=== PATIENT | male | born 1950 | race Caucasian/White ===

== ENCOUNTER 2020-02-08 11:00 | Outpatient (RCR) | payer MEDICARE, MEDICAID, SELFPAY ==
--- NOTE | 2020-01-13 13:33 | HMH.PTOPWND ---
Rehab Outpt Wound Evaluation Rehab OP Wound Evaluation Start: 01/13/20 13:01 Freq: Status: Active Protocol: Document 01/13/20 13:21 SAMIA (Rec: 01/13/20 13:32 PHORNE [id number]) Electronically Signed By Krunal Baptiste, PT 01/13/20 13:21 Subjective/History History History Pt is 69 yowm who presents with significant B LE edema, R >L, for several years. Some pitting edema noted, but mostly fibrotic woody edema. He reports pain in B lower legs comes and goes, but no significant palpation tenderness. He has multiple co -morbidities which likely increase his edema with PMH of HTN, HL, COPD, CAD, PVD, CKD, CHF, DM-II, L foot TM amputation He uses w/c for primary mobility. Subjective Subjective Pain is 5/10 in B lower legs. Lymphedema Eval Classification of Lymphedema Secondary Lymphedema Yes: CHF, CKD, CVI, COPD Stemmer's sign Stemmer's Sign yes Stage of Lymphedema Lymphedema stages Stage III (Non-pitting, fibrosis and sclerosis, skin changes) Skin Changes Dry Skin Yes Taut, Shiny Skin Yes Papillomatosis Yes Brittle Uneven Nails Yes Discoloration of Skin Yes Other Changes Yes: dermatosclerosis Pain Scale Pain Scale (0-10) 5 Affected Extremities Areas Affected by Lymphedema/Edema Right Lower Extremity,Left Lower Extremity Manual Lymphatic Drainage Treatment Area MLD Treatment Area Right Lower Extremity,Left Lower Extremity Wound Problems/Impairments Impairments Problems/Impairmments Impaired Range of Motion, Impaired Strength,Impaired Endurance,Impaired Transfers, Impaired Gait Pattern,Impaired Walking,Impaired Standing, Increased Edema,Lymphedema Present,Subjective C/O Pain, Impaired Self Care/Self Management Prognosis Rehab Potential Fair Comment Multiple co-morbidities with likely make treatment difficult. Clinical Impression Consistent
== END 2020-02-08 11:05 | disposition home or self-care (01) ==
LOC: PT 11:00
PROVIDERS: Visit Provider Internal Medicine Adolescent Medicine
DX: I89.0 Lymphedema, not elsewhere classified (principal)
CPT/HCPCS: 97140; 97163

== ENCOUNTER 2020-02-19 14:07 | Inpatient (IN) | payer MEDICARE, MEDICAID, SELFPAY ==
[2020-02-19] VITALS (10 sets, daily range): BP systolic 107–130; BP diastolic 49–92; PULSE 60–90; RESP 18–24; TEMP 36.8–36.9; O2SAT 90–98; BMI 41.8; BMI 394623.8
--- NOTE | 2020-02-19 14:16 | ECG_ITS ---
APPROVED REPORT Exam: Resting ECG HR:65 bpm ECG Measurements Heart Rate 65 AXES [place] 182 P 92 QRSd 92 QRS -12 QT 402 T 260 QTc 418 <Conclusion> Sinus rhythm with occasional premature ventricular complexes Motion Artifact T wave abnormality, consider inferior ischemia T wave abnormality, consider anterior ischemia Abnormal ECG Electronically signed by : Jaydon Bess, 02/20/2020 09:06:11
--- NOTE | 2020-02-19 14:55 | XR_ITS ---
PROCEDURE: XR CHEST PORTABLE CLINICAL HISTORY: soa Shortness of air COMPARISON: CXR2 CHEST-AP VIEW ONLY from 12/06/2016 CXR1 CHEST-PORTABLE from 12/27/2016 CXR-PICC CHEST PORTABLE-PICC PLACEMENT from 12/31/2016 FINDINGS: There is cardiomegaly with elevated right hemidiaphragm. The diaphragmatic elevation has increased compared to the previous exam. The left lung remains clear. No acute bony findings. IMPRESSION: Cardiomegaly with elevated right hemidiaphragm with increased density in the right lung base which could be related to the diaphragmatic elevation. Other processes such as right lower lobe collapse and sub pulmonic effusion could cause a similar appearance. Dictated by: Robert Edmonds MD 02/19/2020 15:49 Electronically signed by Robert Edmonds MD in [place] 02/19/2020 15:49
[2020-02-19 15:04] LABS: Basophils % 0.1 % (0.1-2.0); Eosinophils % 0.3 % (0.1-12.0); Hematocrit 31.2 % (42.0-52.0); Hemoglobin 9.9 g/dL (14.1-18.0); Lymphocytes # 0.7 K/mm3 (0.7-4.5); Lymphocytes % 5.3 % (10-50); Mean Corpuscular HGB Conc 31.8 g/dL (31.8-35.4); Mean Corpuscular Hemoglobin 28.3 pg (27.0-31.2); Mean Corpuscular Volume 88.9 fl (80-94); Mean Platelet Volume 10.6 fl (7.4-10.4); Monocytes # 1.2 K/mm3 (0.1-1.0); Neutrophils # 11.7 K/mm3 (1.8-7.8); Neutrophils % 85.3 % (37.0-80.0); Platelet Count 291 K/mm3 (142-424); Red Blood Count 3.51 M/mm3 (4.60-6.20); Red Cell Distribution Width 16.7 % (11.5-17.5); White Blood Count 13.7 K/mm3 (4.8-10.8)
[2020-02-19 15:06] LABS: Chloride 90 mmol/L (98-107); Potassium 3.2 mmoL/L (3.5-5.1); Sodium 138 mmol/L (136-145)
[2020-02-19 15:07] LABS: MANUAL DIFFERENTIAL MANUAL DIFFERENTIAL (MANUAL DIFF)
[2020-02-19 15:08] LABS: Alanine Aminotransferase 21 U/L (12-78); Aspartate Amino Transferase 38 U/L (17-59); Blood Urea Nitrogen 47 mg/dl (9-20); Creatinine Clearance Estimated 29 mL/min (50-200); Estimated Glomerular Filt Rate 28 ml/min (>60); GFR (African American) 34 ML/MIN (>60)
[2020-02-19 15:09] LABS: Alkaline Phosphatase 93 U/L (38-126); Bilirubin,Total 0.5 mg/dl (0.2-1.3); Calcium 8.6 mg/dl (8.4-10.2); Globulin 3.1 g/dL (1.3-3.2); Glucose 157 mg/dl (74-100); Total Protein,Serum 6.1 g/dl (6.3-8.2)
[2020-02-19 15:14] LABS: Lactic Acid 0.9 mmol/L (0.7-2.1)
[2020-02-19 15:19] LABS: Anion Gap 8.2 mEq/L (5-15); Carbon Dioxide 43 mmol/L (22.0-30.0)
[2020-02-19 15:21] LABS: Troponin I 0.04 ng/ml (0.00-0.034)
[2020-02-19 15:25] LABS: Anisocytosis 1+; Hypochromasia 1+; Lymphocytes % 8 % (10-50); Monocytes % 8 % (2-9); Neutrophils % 81 % (42-76); Platelet Estimate Normal; Poikilocytosis 1+; Stomatocytes 1+; Total Cells Counted 100
[2020-02-19 15:43] LABS: Activated Partial Thrombo Time 27.6 seconds (23.6-34.0); INR 1.18 (0.9-1.1)
[2020-02-19 16:07] LABS: ABG Base Excess 15.9 mmol/L (-2.4-2.3); ABG HCO3 40.6 mmhg (22.0-26.0); ABG Oxygen Saturation 89 % (90-100); ABG PH 7.41 mmol/L (7.35-7.45); ABG PO2 60.2 mmhg (80-100); ABG TCO2 42.6 mmhg (23-27)
[2020-02-19 16:09] LABS: Allen's Test ACCEPTABLE; Oxygen 3LPM %; Source L RADIAL
[2020-02-19 16:11] LABS: ABG PCO2 66.1 mmhg (35.0-45.0)
--- NOTE | 2020-02-19 16:14 | HMH.EDGENADL ---
ED Disposition Clinical Impression: Acute and chronic respiratory failure with hypoxia, Recurrent right pleural effusion, Right lower lobe pneumonia, UTI (urinary tract infection), [id number] kidney injury Disposition: Admitted As Inpatient Condition on Discharge: Serious Referrals: Edouard De Luna MD [Primary Care Provider] - Time of Disposition: 17:25 - Critical Care Critical Care Time: No Attestation: On 02/19/20, the high probability of a clinically significant, sudden or life threatening deterioration of the following system(s) required my full and direct attention, intervention and personal management. The time I documented below is in addition to time spent performing reported procedures but includes the following listed in this critical care notation. Medical Decision Making - Elmer Inquiry Pt receiving controlled substance: No Vital Signs: 02/19/20 15:03 02/19/20 15:10 02/19/20 15:55 Temperature 98.2 F Temperature Source Oral Pulse Rate [Right Brachial] 90 76 71 Respiratory Rate 18 20 22 Blood Pressure [Right Arm] 118/60 130/92 H 114/52 L Blood Pressure Mean [Right Arm] 79 104 72 Blood Pressure Source [Right Arm] Automatic Cuff Automatic Cuff Automatic Cuff Blood Pressure Position [Right Arm] Sitting Supine Supine 02 Sat by Pulse Oximetry 94 L 90 L 91 L Oxygen Delivery Method Nasal Cannula Nasal Cannula Nasal Cannula 02/19/20 16:30 02/19/20 16:59 Temperature Temperature Source Pulse Rate [Right Brachial] 74 73 Respiratory Rate 24 24 Blood Pressure [Right Arm] 107/49 L 107/49 L Blood Pressure Mean [Right Arm] 68 68 Blood Pressure Source [Right Arm] Automatic Cuff Automatic Cuff Blood Pressure Position [Right Arm] Supine Supine 02 Sat by Pulse Oximetry 98 95 Oxygen Delivery Method Room Air Nasal Cannula - Lab Data Lab Results 02/19/20 14:40: Troponin I 0.04 H 02/19/20 14:40: Lactate 0.9 02/19/20 14:40: WBC 13.7 H, RBC 3.51 L, Hgb 9.9 L, Hct 31.2 L, MCV 88.9, MCH 28.3, MCHC 31.8, RDW 16.7, Plt Count 291, MPV 10.6 H, Neut % (Auto) 85.3 H, Lymph % (Auto) 5.3 L, [place] % (Auto) 9.0, Eos % (Auto) 0.3, Baso % (Auto) 0.1, Neut # (Auto) 11.7 H, Lymph # (Auto) 0.7, [place] # (Auto) 1.2 H, Eos # (Auto) 0.0, Baso # (Auto) 0.0, Total Counted 100, Neutrophils % (Manual) 81 H, Band Neutrophils % 3.0, Lymphocytes % (Manual) 8 L, Monocytes % (Manual) 8, Platelet Estimate Normal, Hypochromasia 1+, Poikilocytosis 1+, Anisocytosis 1+, Stomatocytes 1+ 02/19/20 14:40: Sodium 138, Potassium 3.2 L, Chloride 90 L, Carbon Dioxide 43 H*, Anion Gap 8.2, BUN 47 H, Creatinine 2.30 H, Estimated Creat Clear 29, Estimated GFR 28 L, Est GFR ( Amer) 34 L, Glucose 157 H, Calcium 8.6, Total Bilirubin 0.5, AST 38, ALT 21, Alkaline Phosphatase 93, Total Protein 6.1 L, Albumin 3.0 L, Globulin 3.1, Albumin/Globulin Ratio 1.0 L 02/19/20 14:40: PT 12.0 H, INR 1.18 H, APTT 27.6 02/19/20 15:03: Specimen Source L radial, O2 % 3lpm, ABG pH 7.41, ABG pCO2 66.1 H, ABG pO2 60.2 L, ABG HCO3 40.6 H, ABG Total CO2 42.6 H, ABG O2 Saturation 89 L, ABG Base Excess 15.9 H, Robert Test Acceptable Result diagrams: 02/19/20 14:40 02/19/20 14:40 Orders (Tests/Meds): ED MEDICATIONS Generic Name Dose Route Start Last Admin Trade Name Freq PRN Reason Stop Dose Admin Cefepime HCl 2 gm/ Sodium 100 mls @ 200 mls/hr 02/19/20 16:00 02/19/20 17:14 Chloride IV 03/04/20 15:59 200 mls/hr Q12H SACHIN Administration Protocol Vancomycin HCl 2,000 mg/ 250 mls @ 125 mls/hr 02/19/20 17:00 Sodium Chloride IV 03/04/20 16:59 Q24H SACHIN Protocol Lactated Ringer's 500 mls @ 999 mls/hr 02/19/20 17:30 Lactated Ringer's 1000 Ml Bag IV 02/19/20 18:00 .Q31M SACHIN Lactated Ringer's 1,000 mls @ 100 mls/hr 02/19/20 17:30 Lactated Ringer's 1000 Ml Bag IV 03/20/20 17:29 .Q10H SACHIN ORDERS Category Date Time Status Rapid Influenza A&B Antigens Stat Lab 02/19/20 15:03 Ordered Troponin I Q3H Lab 02/19/20 18:0
--- NOTE | 2020-02-19 16:37 | HMH.PHACONS ---
- Pharmacy Consult Date: 02/19/20 Time: 16:37 Referring provider: DR. CARROLL Reason for Consult:: VANCOMYCIN DOSING Allergies and ADEs:: Allergies Allergy/AdvReac Type Severity Reaction Status Date / Time No Known Allergies Allergy Unverified 07/30/17 14:06 Home Medications:: Home Medications Medication Instructions Recorded Confirmed Type Unobtainable 02/19/20 02/19/20 History Height: 1.83 m Weight: 139.706 kg Laboratory Results:: Laboratory Results - last 24 hr 02/19/20 14:40: Troponin I 0.04 H 02/19/20 14:40: Lactate 0.9 02/19/20 14:40: WBC 13.7 H, RBC 3.51 L, Hgb 9.9 L, Hct 31.2 L, MCV 88.9, MCH 28.3, MCHC 31.8, RDW 16.7, Plt Count 291, MPV 10.6 H, Neut % (Auto) 85.3 H, Lymph % (Auto) 5.3 L, [place] % (Auto) 9.0, Eos % (Auto) 0.3, Baso % (Auto) 0.1, Neut # (Auto) 11.7 H, Lymph # (Auto) 0.7, [place] # (Auto) 1.2 H, Eos # (Auto) 0.0, Baso # (Auto) 0.0, Total Counted 100, Neutrophils % (Manual) 81 H, Band Neutrophils % 3.0, Lymphocytes % (Manual) 8 L, Monocytes % (Manual) 8, Platelet Estimate Normal, Hypochromasia 1+, Poikilocytosis 1+, Anisocytosis 1+, Stomatocytes 1+ 02/19/20 14:40: Sodium 138, Potassium 3.2 L, Chloride 90 L, Carbon Dioxide 43 H*, Anion Gap 8.2, BUN 47 H, Creatinine 2.30 H, Estimated Creat Clear 29, Estimated GFR 28 L, Est GFR ( Amer) 34 L, Glucose 157 H, Calcium 8.6, Total Bilirubin 0.5, AST 38, ALT 21, Alkaline Phosphatase 93, Total Protein 6.1 L, Albumin 3.0 L, Globulin 3.1, Albumin/Globulin Ratio 1.0 L 02/19/20 14:40: PT 12.0 H, INR 1.18 H, APTT 27.6 07/10/20 15:03: Specimen Source L radial, O2 % 3lpm, ABG pH 7.41, ABG pCO2 66.1 H, ABG pO2 60.2 L, ABG HCO3 40.6 H, ABG Total CO2 42.6 H, ABG O2 Saturation 89 L, ABG Base Excess 15.9 H, Robert Test Acceptable Assessment and Plan - Assessment and plan all Dx Assessment and Plan for all problems:: Assessment: IBW (kg): 77.60 Dosing wt(kg): 134.9 Estimated Creatinine clearance (ml/min): 32.3 CRCL method: Cockcroft and Gault using ibw(default). Drug selected: Vancomycin Loading dose (mg): 0 Vd (liters): 107.9 (factor used: 0.8 L/kg) Sav (hr-1): 0.031 Half life (hrs): 22.36 Recommended dose: 2000 mg Interval: 24 hrs Infusion time (hrs): 2.0 Predicted peak (mcg/mL): 34.2 Predicted trough (mcg/mL): 17.29 Total body weight is being used for vancomycin dosing. Renal function is stable [ ] /unstable [ ] Recommendations: Give Vancomycin 2000 mg q 24 hrs with an expected Cpeak of 34.2 mcg/ml and an expected Ctrough of 17.29 mcg/ml Renal dosing of other antibiotics (review renal dosing of other medications and list guidelines here): Thank you for the consult, will continue to follow. VALENTÍN MEDRANO, CHRISTOPHD
--- NOTE | 2020-02-19 16:55 | PC.NURSE ---
SPEAKING TO AT THIS TIME
[2020-02-19 17:33] LABS: Microscopic, Urine URINE MICROSCOPIC (MICROSCOPIC)
[2020-02-19 17:40] LABS: Appearance,Urine TURBID (Clear); Bilirubin,Urine Negative (Negative); Blood, Urine 3+ (Negative); Color,Urine YELLOW (Yellow); Glucose,Urine (UA) Negative (Negative); Ketones,Urine TRACE (Negative); Leukocyte Esterase,Urine 2+ (Negative); Nitrate,Urine Negative (Negative); Protein,Urine 2+ (Negative); Urobilinogen,Urine 0.2 EU/dl (0.2)
[2020-02-19 17:49] LABS: Amorphous Sediment,Urine 3+ /lpf; Bacteria,Urine 1+ /lpf; RBC,Urine 20-50 #/hpf (0-3); WBC,Urine TNTC #/hpf (0-3)
--- NOTE | 2020-02-19 18:50 | PC.NURSE ---
MED REC NOT COMPLETED. [facility] DID NOT SEND MAR. SNF CONTACTED AND REQUESTED FOR MAR TO BE FAXED. STILL AWAITING MAR, WILL PASS INFORMATION TO ONCOMING NURSE
--- NOTE | 2020-02-19 19:02 | HMH.HP ---
*Admission Date: 02/19/20 *Chief complaint: increased SOA *History of present illness: 69-year-old gentleman with history of congestive heart failure, chronic oxygen use, partial amputation of left foot, diabetes, and chronic kidney disease who presented to the ER with worsening shortness of breath. He is a long-term resident at [facility] where he has been having difficulty for the past several days with worsening shortness of breath since stopping antibiotics and be getting treatment for UTI per his daughter's report. He has been afebrile and more tired but still alert. No nausea, vomiting. Patient denies any chest pain. On presentation to the ER he was noted to have mild elevation white count, heart rate of 90, hypercarbia, increased oxygen requirement from baseline, and creatinine of 2.3 (with unclear baseline). Urine concerning for UTI. Of note he was being treated at the longterm with Invanz for UTI over the past 2 to 3 days. Patient is pleasant but a poor historian. He is oriented to person but otherwise limited in his orientation to his surroundings. Daughter states he is more or less at baseline with increased work of breathing. States his legs are significantly more swollen than normal but he deals with chronic edema. [facility] History I have reviewed the patient's past medical history: Yes (obtained from outpatient chart) Medical History: Reports:: Atrial Fibrillation (paroxysmal), Congestive Heart Failure, Chronic Obstructive Pulmonary Disease (COPD), Cerebrovascular Accident, Diabetes Mellitus Type 2, Renal Insufficiency Denies:: Cancer, Diabetes Mellitus Type 1, Internal Pacemaker, MRSA *Have you ever received a pneumonia vaccine?: Yes *Have you received a flu vaccine this season?: Yes Other Medical History: Reports: Arthritis Other Surgeries: No: Pacemaker Amputation: Yes (LEFT TOES AMPUTATED) - *Social History Last grade of school completed: High school graduate Smoking Status: Former smoker Tobacco Type: cigarettes # Packs/Day (cigarettes): 1 Alcohol Intake: never *Occupational Status:: retired Housing: longterm Household Members: caregiver *Travel in the last 8 weeks: None Family Hx:: Unable to obtain Review of Systems - Review of Systems Review of systems:: pertinent systems reviewed and negative unless documented below (14 point review of systems performed, pertinent positives and negatives as per HPI obtained from daughter, difficult to obtain from patient) - *Neurologic Denies headache(s) Meds Home Medications Medication Instructions Recorded Confirmed Type Apixaban [Eliquis 5mg Tablet] 5 mg PO BID 02/19/20 02/19/20 History Atorvastatin Calcium [Lipitor 80mg 80 mg PO HS 02/19/20 02/19/20 History Tablet] Bumetanide [Bumex 1mg tablet] 3 mg PO BID 02/19/20 02/19/20 History Cholecalciferol (Vitamin D3) 50,000 unit PO WEEKLY 02/19/20 02/19/20 History [Vitamin D3 50,000 unit Cap] Ertapenem Sodium [Invanz 1gm Vial] 1 gm IV DAILY 02/19/20 02/19/20 History Escitalopram Oxalate [Lexapro] 20 mg PO HS 02/19/20 02/19/20 History Famotidine [Pepcid 20mg Tablet] 20 mg PO BID 02/19/20 02/19/20 History Flomax 0.4mg capsule 0.4 mg PO DAILY 02/19/20 02/19/20 History Furosemide [Lasix 40mg tab] 40 mg PO BID 02/19/20 02/19/20 History Insulin Lispro [HumaLOG 100 100 unit SQ ACHS 02/19/20 02/19/20 History units/mL 3mL vial (SSI)] LORazepam [Ativan 0.5mg 0.5 mg PO BID 02/19/20 02/19/20 History tablet] Melatonin 5 mg PO HS 02/19/20 02/19/20 History Mineral Oil/Hydrophil Petrolat 50 gm TP BID 02/19/20 02/19/20 History [Aquaphor Healing Ointment] Mometasone Furoate [Asmanex] 220 mcg IH DAILY 02/19/20 02/19/20 History Roxanol 20mg/mL 1mL oral solution 0.5 ml PO Q2HP PRN 02/19/20 02/19/20 History UDC Sennosides/Docusate Sodium [Senna 1 each PO BID 02/19/20 02/19/20 History Plus 8.6-50 mg Tablet] carvediloL [Carvedilol 25mg Tab] 25 mg PO BID 02/19/20 02/19/20 His
[2020-02-19 19:06] LABS: Troponin I 0.04 ng/ml (0.00-0.034)
[2020-02-19 19:26] LABS: NT Pro Brain Natriuretic Pep. 3700 pg/mL (0-125)
--- NOTE | 2020-02-19 20:00 | PC.NURSE ---
Pt's room air sat at rest =85%.
[2020-02-19 21:54] LABS: Troponin I 0.04 ng/ml (0.00-0.034)
--- NOTE | 2020-02-19 23:10 | PC.NURSE ---
Addendum entered by Chris Ramirez RN 02/19/20 23:25: Pt refusing to allow this RN to auscultate lung, heart, and bowel sounds. Will attempt at a later time. Original Note: Pt refused insertion of soto cath by this RN. Pt is alert to self at the moment, believes he is at the alf. This Rn attempted to reorientate and educate importance of accurate I&O r/t pt's admission. He then requested he talk to the boss . service delivery supervisor SAVANNAH Jc called to pt room. Pt continues to refuse soto by multiple staff members. MD Costello notified at [phone]. Orders for ativan and to administer lasix if pt continues to refuse soto.
[2020-02-20] VITALS (12 sets, daily range): BP systolic 112–120; BP diastolic 47–83; PULSE 50–87; RESP 16–24; TEMP 36.3–36.9; O2SAT 83–94; BMI 38.6
--- NOTE | 2020-02-20 02:57 | PC.NURSE ---
Jonatan Talavera called to get update at this time [id number]
--- NOTE | 2020-02-20 06:12 | PC.NURSE ---
Addendum entered by Chris Ramirez RN 02/20/20 06:27: Pt had basin bath this shift Original Note: Pt allowed staff to insert soto around midnight using aseptic technique. Cloudy, yellow urine obtained and sample sent to lab. Soto anchored to bedside drain. Pt is only alert to self still. Pt turned often to prevent skin breakdown. Skin tear to left FA, present on admission, covered w/ telfa and tegaderm. BLE elevated on pillows. Pt tolerating 3LNC. RA sat at rest of 83%. Pt does not do well with laying flat or turning in bed, thus remains resistive to care at times. Tolerated IV lasix well. Will continue to monitor.
[2020-02-20 07:10] LABS: Basophils % 0.1 % (0.1-2.0); Chloride 93 mmol/L (98-107); Eosinophils # 0.1 K/mm3 (0.0-0.4); Eosinophils % 0.4 % (0.1-12.0); Hemoglobin 9.7 g/dL (14.1-18.0); Lymphocytes # 0.7 K/mm3 (0.7-4.5); Lymphocytes % 5.4 % (10-50); Mean Corpuscular HGB Conc 31.3 g/dL (31.8-35.4); Mean Corpuscular Hemoglobin 27.7 pg (27.0-31.2); Mean Corpuscular Volume 88.5 fl (80-94); Mean Platelet Volume 10.2 fl (7.4-10.4); Monocytes % 8.4 % (1.7-9.3); Neutrophils # 10.7 K/mm3 (1.8-7.8); Neutrophils % 85.7 % (37.0-80.0); Platelet Count 230 K/mm3 (142-424); Potassium 3.1 mmoL/L (3.5-5.1); Red Blood Count 3.51 M/mm3 (4.60-6.20); Red Cell Distribution Width 16.3 % (11.5-17.5); Sodium 141 mmol/L (136-145); White Blood Count 12.5 K/mm3 (4.8-10.8)
[2020-02-20 07:13] LABS: Alanine Aminotransferase 22 U/L (12-78); Alkaline Phosphatase 93 U/L (38-126); Aspartate Amino Transferase 35 U/L (17-59); Bilirubin,Total 0.5 mg/dl (0.2-1.3); Blood Urea Nitrogen 42 mg/dl (9-20); Calcium 8.5 mg/dl (8.4-10.2); Creatinine Clearance Estimated 59 mL/min (50-200); Estimated Glomerular Filt Rate 31 ml/min (>60); GFR (African American) 38 ML/MIN (>60); Globulin 3.1 g/dL (1.3-3.2); Glucose 140 mg/dl (74-100); Total Protein,Serum 6.1 g/dl (6.3-8.2)
[2020-02-20 07:14] LABS: Magnesium 2.1 mg/dl (1.6-2.3)
[2020-02-20 07:16] LABS: MANUAL DIFFERENTIAL MANUAL DIFFERENTIAL (MANUAL DIFF)
[2020-02-20 07:24] LABS: Anion Gap 9.1 mEq/L (5-15); Carbon Dioxide 42 mmol/L (22.0-30.0)
[2020-02-20 07:51] LABS: Anisocytosis 1+; Hypochromasia 1+; Lymphocytes % 19 % (10-50); Monocytes % 4 % (2-9); Neutrophils % 77 % (42-76); Platelet Estimate Normal; Poikilocytosis 1+; Total Cells Counted 100
--- NOTE | 2020-02-20 11:26 | HMH.ACPN2 ---
Internal Medicine - PN: Subj *Date: 02/20/20 *Time: 11:26 Interval history: Mr. Wynne did well overnight. Breathing has improved somewhat on exam this morning with diuresis. Slight improvement as well and kidney function and edema. Denies any chest pain, nausea, vomiting. More alert this morning. Sitting up in bed eating on interview. No family at bedside. Remains afebrile. Normotensive. Saucedo draining very cloudy frankly purulent urine. Exam Vital signs and Labs for Last 24 Hours: Temp Pulse Resp BP Pulse Ox 97.9 F 87 16 112/57 L 93 L 02/20/20 08:00 02/20/20 08:00 02/20/20 08:00 02/20/20 08:00 02/20/20 08:00 Laboratory Results - last 24 hr 02/19/20 14:40: Troponin I 0.04 H 02/19/20 14:40: Lactate 0.9 02/19/20 14:40: WBC 13.7 H, RBC 3.51 L, Hgb 9.9 L, Hct 31.2 L, MCV 88.9, MCH 28.3, MCHC 31.8, RDW 16.7, Plt Count 291, MPV 10.6 H, Neut % (Auto) 85.3 H, Lymph % (Auto) 5.3 L, [place] % (Auto) 9.0, Eos % (Auto) 0.3, Baso % (Auto) 0.1, Neut # (Auto) 11.7 H, Lymph # (Auto) 0.7, [place] # (Auto) 1.2 H, Eos # (Auto) 0.0, Baso # (Auto) 0.0, Total Counted 100, Neutrophils % (Manual) 81 H, Band Neutrophils % 3.0, Lymphocytes % (Manual) 8 L, Monocytes % (Manual) 8, Platelet Estimate Normal, Hypochromasia 1+, Poikilocytosis 1+, Anisocytosis 1+, Stomatocytes 1+ 02/19/20 14:40: Sodium 138, Potassium 3.2 L, Chloride 90 L, Carbon Dioxide 43 H*, Anion Gap 8.2, BUN 47 H, Creatinine 2.30 H, Estimated Creat Clear 29, Estimated GFR 28 L, Est GFR ( Amer) 34 L, Glucose 157 H, Calcium 8.6, Total Bilirubin 0.5, AST 38, ALT 21, Alkaline Phosphatase 93, Total Protein 6.1 L, Albumin 3.0 L, Globulin 3.1, Albumin/Globulin Ratio 1.0 L 02/19/20 14:40: PT 12.0 H, INR 1.18 H, APTT 27.6 02/19/20 15:03: Specimen Source L radial, O2 % 3lpm, ABG pH 7.41, ABG pCO2 66.1 H, ABG pO2 60.2 L, ABG HCO3 40.6 H, ABG Total CO2 42.6 H, ABG O2 Saturation 89 L, ABG Base Excess 15.9 H, Robert Test Acceptable 02/19/20 17:24: Urine Color Yellow, Urine Appearance Turbid, Urine pH 6.0, Ur Specific [place] 1.020, Urine Protein 2+, Urine Glucose (UA) Negative, Urine Ketones Trace, Urine Blood 3+, Urine Nitrate Negative, Urine Bilirubin Negative, Urine Urobilinogen 0.2, Ur Leukocyte Esterase 2+ A, Urine RBC 20-50, Urine WBC Tntc, Ur Squamous Epith Cells 10-20, Amorphous Sediment 3+, Urine Bacteria 1+ 02/19/20 18:00: Influenza Type A Ag Negative, Influenza Type B Ag Negative 02/19/20 18:30: Troponin I 0.04 H 02/19/20 18:30: NT-Pro-B Natriuret Pep 3700 H 02/19/20 21:22: Troponin I 0.04 H 02/20/20 06:30: WBC 12.5 H, RBC 3.51 L, Hgb 9.7 L, Hct 31.0 L, MCV 88.5, MCH 27.7, MCHC 31.3 L, RDW 16.3, Plt Count 230, MPV 10.2, Neut % (Auto) 85.7 H, Lymph % (Auto) 5.4 L, [place] % (Auto) 8.4, Eos % (Auto) 0.4, Baso % (Auto) 0.1, Neut # (Auto) 10.7 H, Lymph # (Auto) 0.7, [place] # (Auto) 1.0, Eos # (Auto) 0.1, Baso # (Auto) 0.0, Total Counted 100, Neutrophils % (Manual) 77 H, Lymphocytes % (Manual) 19, Monocytes % (Manual) 4, Platelet Estimate Normal, Hypochromasia 1+, Poikilocytosis 1+, Anisocytosis 1+ 02/20/20 06:30: Sodium 141, Potassium 3.1 L, Chloride 93 L, Carbon Dioxide 42 H*, Anion Gap 9.1, BUN 42 H, Creatinine 2.10 H, Estimated Creat Clear 59, Estimated GFR 31 L, Est GFR ( Amer) 38 L, Glucose 140 H, Calcium 8.5, Magnesium 2.1, Total Bilirubin 0.5, AST 35, ALT 22, Alkaline Phosphatase 93, Total Protein 6.1 L, Albumin 3.0 L, Globulin 3.1, Albumin/Globulin Ratio 1.0 L I & O for Last 24 hours: Intake & Output 02/17/20 02/18/20 02/19/20 02/20/20 23:59 23:59 23:59 23:59 Intake Total 210 / 210 Output Total 750 / 750 Balance -540 / -540 Weight 131.995 kg 129.472 kg Microbiology Reports for the Last 24 Hours: Microbiology 02/19/20 17:24 Urine,Clean Catch Urine Culture - Preliminary Narrative: - Constitutional On baseline oxygen requirement, breathing more comfortably, upright in bed in minimal distress on interview, obese - *Routine HEENT Exam Head: Present:
--- NOTE | 2020-02-20 11:49 | HMH.PHAVTE ---
[facility] Pharmacy VTE Monitoring - Patient Demographics Admission date: 02/19/20 Report Date: 02/20/20 Time: 11:49 Allergies/Adverse Reactions: Patient Allergies No Known Allergies Allergy (Unverified 07/30/17 14:06) Height: 1.83 m Weight: 129.472 kg Patient Problems: Current Active Problems Acute and chronic respiratory failure with hypoxia (Acute) Recurrent right pleural effusion (Chronic) Right lower lobe pneumonia (Acute) UTI (urinary tract infection) (Acute) Mpeee-rl-odwnmyt kidney injury (Acute) Acute on chronic congestive heart failure (Acute) Hypercarbia (Chronic) Sepsis (Acute) Class II obesity (Chronic) - VTE Risk Labs: VTE Related Lab Results Hgb 9.7 g/dL (14.1-18.0) L 02/20/20 06:30 Hct 31.0 % (42.0-52.0) L 02/20/20 06:30 Plt Count 230 K/mm3 (142-424) 02/20/20 06:30 PT 12.0 seconds (9.4-11.8) H 02/19/20 14:40 INR 1.18 (0.9-1.1) H 02/19/20 14:40 APTT 27.6 seconds (23.6-34.0) 02/19/20 14:40 BUN 42 mg/dl (9-20) H 02/20/20 06:30 Creatinine 2.10 mg/dl (0.66-1.25) H 02/20/20 06:30 Estimated Creat Clear 59 mL/min (50-200) 02/20/20 06:30 Was VTE Risk Assessment Performed: Yes VTE Score: 6 VTE Risk Level: Moderate Risk - Prophylaxis VTE Prophylaxis Ordered?: Yes Types of VTE Prophylaxis: TEDS Knee High Location of Applied Device: Bilateral Lower Extremeties - VTE Diagnosis Confirmed Treatment or plan recommended: Continue Current Treatment
--- NOTE | 2020-02-20 14:59 | HMH.PHAINT ---
MEDICATION RECONCILIATION COMPLETED ON PATIENT USING MAR FROM [facility]. -MITZI MATOS, CHRISTOPHD
--- NOTE | 2020-02-20 18:09 | PC.NURSE ---
ALERT AND ORIENTED X3. NO COMPLAINTS OF PAIN. PT TURNED Q2. APPETITE IS GOOD. WEBB CATHETER IS SECURE, PATENTS, AND DRAINING CLOUDY YELLOW URINE. PTS O2 SAT REMAINS IN MID 90'S ON 3LNC. NO COMPLAINTS OF SOB. VSS. SAFETY MEASURES IN PLACE. WILL CONTINUE TO MONITOR
[2020-02-21] VITALS (12 sets, daily range): BP systolic 112–118; BP diastolic 46–70; PULSE 60–90; RESP 18–26; TEMP 36.5–37.1; O2SAT 90–100; BMI 38.7
--- NOTE | 2020-02-21 01:49 | PC.NURSE ---
0130- Pt was attempting to exit bed. Pt confused on where he is. O2 sat obtained. Increased RR. RT paged and BiPap applied at this time. freight caller Md notified. Pt has tolerated well at this point. Will continue to monitor. Pulse Ox monitoring per protocol.
--- NOTE | 2020-02-21 04:47 | PC.NURSE ---
Pt has tolerated BiPap well since application at 0150. Sats maintained 94-96%. Saucedo remains patent and draining cloudy yellow urine W/ adequate output noted. Pt repositioned Q2H to prevent breakdown. BLE elevated. Pt received basin bath this shift. Tele monitor shows NSR w/ multi focal PVC's and occasional PAC's. PO intake has increased. Drsg to skin tear on left forearm is C/D/I. Bed alarm in place and call light within reach. Will continue to monitor.
[2020-02-21 07:28] LABS: Basophils % 0.1 % (0.1-2.0); Eosinophils % 0.3 % (0.1-12.0); Hematocrit 30.3 % (42.0-52.0); Hemoglobin 9.6 g/dL (14.1-18.0); Lymphocytes # 0.7 K/mm3 (0.7-4.5); Lymphocytes % 5.9 % (10-50); Mean Corpuscular HGB Conc 31.7 g/dL (31.8-35.4); Mean Corpuscular Hemoglobin 27.8 pg (27.0-31.2); Mean Corpuscular Volume 87.9 fl (80-94); Mean Platelet Volume 10.1 fl (7.4-10.4); Monocytes # 1.2 K/mm3 (0.1-1.0); Monocytes % 9.6 % (1.7-9.3); Neutrophils # 10.5 K/mm3 (1.8-7.8); Neutrophils % 84.1 % (37.0-80.0); Platelet Count 247 K/mm3 (142-424); Red Blood Count 3.44 M/mm3 (4.60-6.20); Red Cell Distribution Width 16.3 % (11.5-17.5); White Blood Count 12.4 K/mm3 (4.8-10.8)
[2020-02-21 07:35] LABS: Blood Urea Nitrogen 37 mg/dl (9-20); Calcium 8.6 mg/dl (8.4-10.2); Chloride 90 mmol/L (98-107); Creatinine Clearance Estimated 69 mL/min (50-200); Estimated Glomerular Filt Rate 37 ml/min (>60); GFR (African American) 45 ML/MIN (>60); Glucose 137 mg/dl (74-100); Magnesium 2.2 mg/dl (1.6-2.3); Sodium 144 mmol/L (136-145)
[2020-02-21 07:42] LABS: Anion Gap 9.9 mEq/L (5-15)
[2020-02-21 07:43] LABS: Carbon Dioxide 47 mmol/L (22.0-30.0); Potassium 2.9 mmoL/L (3.5-5.1)
--- NOTE | 2020-02-21 07:59 | HMH.DCSUM ---
General - General Admission date:: 02/19/20 Discharge date: 02/21/20 HPI HPI: 69-year-old gentleman with history of congestive heart failure, chronic oxygen use, partial amputation of left foot, diabetes, and chronic kidney disease who presented to the ER with worsening shortness of breath. He is a long-term resident at [facility] where he has been having difficulty for the past several days with worsening shortness of breath since stopping antibiotics and be getting treatment for UTI per his daughter's report. He has been afebrile and more tired but still alert. No nausea, vomiting. Patient denies any chest pain. On presentation to the ER he was noted to have mild elevation white count, heart rate of 90, hypercarbia, increased oxygen requirement from baseline, and creatinine of 2.3 (with unclear baseline). Urine concerning for UTI. Of note he was being treated at the prison with Invanz for UTI over the past 2 to 3 days. Patient is pleasant but a poor historian. He is oriented to person but otherwise limited in his orientation to his surroundings. Daughter states he is more or less at baseline with increased work of breathing. States his legs are significantly more swollen than normal but he deals with chronic edema. Hospital Course Hospital Course: 69-year-old gentleman admitted for sepsis and worsening shortness of breath. Patient's imaging on initial work-up showed significant effusion but no focal consolidations on chest x-ray. Additionally noted to have acute on chronic kidney injury, significant edema, and grossly abnormal urine. Patient's urine from earlier in the week that was collected as an outpatient growing greater than 100,000 CFU's of Morganella Morgagni. Sensitivities showed significant resistance. Was initiated on Invanz with plan for 10 days of antibiotics, to complete course at prison. Additionally diuresis was performed for which he showed good response from a respiratory and renal function standpoint. Decreased back to baseline oxygen requirement. Kidney function showed improvement. Overall tolerated well. Slight improvement in his peripheral edema as well. Patient tolerating regular diet, infection identified. Remained afebrile, hemodynamically stable, and proved respiratory status and decreased oxygen requirement. No complaints on day of discharge. Medically stable for discharge back to prison. Will complete antibiotics there. Would recommend repeat labs in a week. Of note, patient has had recurring UTI with multiple bacteria over the past month and a half. Sources include E. coli, Klebsiella, Morganella. Within the past 6 months he also grew Proteus. Strong concern for recurrent antibiotic resistant infections. Given his multiple comorbidities, congestive heart failure, kidney dysfunction, and recurrent infections, would recommend revisiting discussion with family of considering hospice for his chronic debilitating diseases and worsening urinary tract infections. Objective Vital signs: Temp Pulse Resp BP Pulse Ox 97.7 F 64 20 116/64 96 02/21/20 04:00 02/21/20 04:00 02/21/20 04:48 02/21/20 04:00 02/21/20 04:48 Narrative: - Constitutional On baseline oxygen requirement, breathing at baseline this morning, upright in bed in minimal distress on interview, obese - *Routine HEENT Exam Head: Present: normocephalic Eye: Present: EOMI, PERRL ENT: Present: mucous membranes moist - *Routine Neck Exam Present: supple. Absent: lymphadenopathy - *Routine Respiratory Exam Present: decreased breath sounds (In bilateral bases), interval improvement in crackles (in bases) - *Routine Cardiovascular Exam Present: RRR Comments: Distant heart sounds, difficult to auscultate, complicated by body habitus Abdominal Exam Present: soft, normoactive bowel sounds. Absent: tenderness : Saucedo catheter draining cloudy purulent urine -
[2020-02-21 12:07] LABS: Coronavirus 19 IgG Antibody Positive (Negative); Coronavirus 19 IgM Antibody Positive (Negative)
--- NOTE | 2020-02-21 13:48 | HMH.ACPN2 ---
Internal Medicine - PN: Subj *Date: 02/21/20 *Time: 13:48 Interval history: Patient continues to look better this morning than yesterday. Tolerating good p.o. intake. Labs reviewed this morning, showing improvement in kidney function with diuresis. Stable on baseline oxygen. Woke easily on exam and appears a little bit more oriented. Overnight did wear BiPAP due to some mild confusion as it was initiated and he seemed to tolerate it well with improvement in mentation upon waking this morning. Patient remains afebrile, hemodynamically stable. Of note, plan was to discharge patient today. Prior to discharge, he needed coronavirus testing. Rapid IgG/IgM was performed which came back positive for both. Discharge was canceled. Patient transitioned to negative pressure room and nasal swab ordered to assess for viral shedding. Exam Vital signs and Labs for Last 24 Hours: Temp Pulse Resp BP Pulse Ox 98.1 F 78 20 112/58 L 94 L 02/21/20 12:41 02/21/20 12:41 02/21/20 12:41 02/21/20 12:41 02/21/20 08:00 Laboratory Results - last 24 hr 02/19/20 17:24: Urine Color Yellow, Urine Appearance Turbid, Urine pH 6.0, Ur Specific [place] 1.020, Urine Protein 2+, Urine Glucose (UA) Negative, Urine Ketones Trace, Urine Blood 3+, Urine Nitrate Negative, Urine Bilirubin Negative, Urine Urobilinogen 0.2, Ur Leukocyte Esterase 2+ A, Urine RBC 20-50, Urine WBC Tntc, Ur Squamous Epith Cells 10-20, Amorphous Sediment 3+, Urine Bacteria 1+ 02/21/20 06:32: WBC 12.4 H, RBC 3.44 L, Hgb 9.6 L, Hct 30.3 L, MCV 87.9, MCH 27.8, MCHC 31.7 L, RDW 16.3, Plt Count 247, MPV 10.1, Neut % (Auto) 84.1 H, Lymph % (Auto) 5.9 L, [place] % (Auto) 9.6 H, Eos % (Auto) 0.3, Baso % (Auto) 0.1, Neut # (Auto) 10.5 H, Lymph # (Auto) 0.7, [place] # (Auto) 1.2 H, Eos # (Auto) 0.0, Baso # (Auto) 0.0 02/21/20 06:32: Sodium 144, Potassium 2.9 L*, Chloride 90 L, Carbon Dioxide 47 H*, Anion Gap 9.9, BUN 37 H, Creatinine 1.80 H, Estimated Creat Clear 69, Estimated GFR 37 L, Est GFR ( Amer) 45 L, Glucose 137 H, Calcium 8.6, Magnesium 2.2 02/21/20 06:32: SARS-CoV-2 IgG Ab (Rapid) Positive A, SARS-CoV-2 IgM Ab (Rapid) Positive A I & O for Last 24 hours: Intake & Output 02/18/20 02/19/20 02/20/20 02/21/20 23:59 23:59 23:59 23:59 Intake Total 1110 / 1330 580 / 580 Output Total 2150 / 2150 750 / 750 Balance -1040 / -820 -170 / -170 Weight 131.995 kg 129.472 kg 129.841 kg Microbiology Reports for the Last 24 Hours: Microbiology 02/19/20 17:24 Urine,Clean Catch Urine Culture - Preliminary Gram Negative Rods Narrative: - Constitutional On baseline oxygen requirement, breathing at baseline this morning, upright in bed in minimal distress on interview, obese - *Routine HEENT Exam Head: Present: normocephalic Eye: Present: EOMI, PERRL ENT: Present: mucous membranes moist - *Routine Neck Exam Present: supple. Absent: lymphadenopathy - *Routine Respiratory Exam Present: decreased breath sounds (In bilateral bases), interval improvement in crackles (in bases) - *Routine Cardiovascular Exam Present: RRR Comments: Distant heart sounds, difficult to auscultate, complicated by body habitus Abdominal Exam Present: soft, normoactive bowel sounds. Absent: tenderness : Saucedo catheter draining cloudy purulent urine - *Routine Extremities Exam Present: edema improving but still significant (2+ to mid thigh chronic venous stasis changes bilateral shins). Absent: cyanosis, clubbing; left foot with amputation of toes, well-healed - *Routine Skin Exam Present: warm. Absent: rash - *Routine Neurological Exam Present: alert, Oriented to person, knows he is at the hospital but does not know where, otherwise on oriented to place or time Assessment and Plan (1) COVID-19 virus infection Current visit: Yes Status: Acute Category: Medical Code(s): U07.1 - COVID-19 Identified by antigen swab today. Viral swab pending.
--- NOTE | 2020-02-21 16:13 | PC.NURSE ---
RT obtained sputum sample from patient at 1545, double bagged and walked sample to the lab
[2020-02-22] VITALS (9 sets, daily range): BP systolic 103–134; BP diastolic 61–80; PULSE 60–103; RESP 18–32; TEMP 36.4–37.3; O2SAT 84–96; BMI 38.3; BMI 38.5
--- NOTE | 2020-02-22 03:20 | PC.NURSE ---
Pt has rested comfortably t/o this shift. Pt had a complete bed bath and complete linen change this shift. Pt continues to be on 4L NC and 02 sats remain in the mid to low 90's. 4+ pitting edema in bilateral LE. Redness noted on left leg and left foot. SEE BIOPHYSICAL. Pt remains in airborne, contact and eye protection precautions in negative air pressure room due to COVID-19 results. Appropriate PPE is being worn by all staff. Call light is within reach, along with all other safety precautions. No complaints at this time. Will continue to monitor.
[2020-02-22 06:35] LABS: Basophils % 0.2 % (0.1-2.0); Eosinophils # 0.1 K/mm3 (0.0-0.4); Eosinophils % 0.4 % (0.1-12.0); Hematocrit 30.5 % (42.0-52.0); Hemoglobin 9.4 g/dL (14.1-18.0); Lymphocytes # 0.8 K/mm3 (0.7-4.5); Lymphocytes % 5.8 % (10-50); Mean Corpuscular HGB Conc 30.9 g/dL (31.8-35.4); Mean Corpuscular Volume 90.8 fl (80-94); Mean Platelet Volume 9.6 fl (7.4-10.4); Monocytes # 1.4 K/mm3 (0.1-1.0); Monocytes % 10.6 % (1.7-9.3); Platelet Count 285 K/mm3 (142-424); Red Blood Count 3.36 M/mm3 (4.60-6.20); Red Cell Distribution Width 16.6 % (11.5-17.5); White Blood Count 13.3 K/mm3 (4.8-10.8)
[2020-02-22 06:37] LABS: Chloride 91 mmol/L (98-107); Sodium 141 mmol/L (136-145)
[2020-02-22 06:38] LABS: Potassium 3.3 mmoL/L (3.5-5.1)
[2020-02-22 06:40] LABS: Blood Urea Nitrogen 31 mg/dl (9-20); Calcium 8.6 mg/dl (8.4-10.2); Creatinine Clearance Estimated 77 mL/min (50-200); Estimated Glomerular Filt Rate 43 ml/min (>60); GFR (African American) 52 ML/MIN (>60); Glucose 127 mg/dl (74-100)
[2020-02-22 06:41] LABS: Magnesium 2.1 mg/dl (1.6-2.3)
[2020-02-22 06:53] LABS: Anion Gap 9.3 mEq/L (5-15); Carbon Dioxide 44 mmol/L (22.0-30.0)
--- NOTE | 2020-02-22 10:49 | SW/DCPLANNER ---
Addendum entered by Madhavi Damon 02/24/20 14:14: Negative results are in and patient discharge summary along with negative covid results have been faxed to Katrina. I have informed Katrina that patient will discharge back today. Addendum entered by Madhavi Damon 02/24/20 10:04: I have informed Baltazar with [facility] that we are currently just waiting for COVID results prior to discharge. Original Note: Patient resides at [facility]. I will follow up with Katrina from [facility] once patient is stable for discharge.
[2020-02-22 12:31] LABS: ABG Base Excess 15.8 mmol/L (-2.4-2.3); ABG HCO3 40.7 mmhg (22.0-26.0); ABG Oxygen Saturation 92 % (90-100); ABG PH 7.39 mmol/L (7.35-7.45); ABG TCO2 42.8 mmhg (23-27)
[2020-02-22 12:33] LABS: Allen's Test ACCEPTABLE; Oxygen 4L %; Source Right Radial
[2020-02-22 12:34] LABS: ABG PCO2 68.1 mmhg (35.0-45.0)
[2020-02-22 14:13] LABS: Adenovirus F 40/41, stool Not Detected (NotDetected); Astrovirus Not Detected (NotDetected); Campylobacter Not Detected (NotDetected); Clostridium Difficile A/B, PCR Not Detected (NotDetected); Cryptosporidium Not Detected (NotDetected); Cyclospora Cayetanesis Not Detected (NotDetected); Entamoeba histolytica Not Detected (NotDetected); Enteroaggregative E coli Not Detected (NotDetected); Enteropathogenic E coli Not Detected (NotDetected); Enterotoxigenic E coli Not Detected (NotDetected); Giardia lamblia Not Detected (NotDetected); Norovirus Not Detected (NotDetected); Plesimonas Shigalloides, PCR Not Detected (NotDetected); Rotavirus A Not Detected (NotDetected); Salmonella, PCR Not Detected (NotDetected); Sapovirus Not Detected (NotDetected); Shiga-like toxin E coli Not Detected (NotDetected); Shigella Enterovasive E coli Not Detected (NotDetected); Vibrio Cholerae Not Detected (NotDetected); Vibrio, PCR Not Detected (NotDetected); Yersinia Entercolitica, PCR Not Detected (NotDetected)
--- NOTE | 2020-02-22 14:26 | PC.NURSE ---
Pt has refused meals, tried to encourage him to eat and he pushes the spoon away from his mouth.
[2020-02-22 16:31] LABS: POC Glucose,Bedside 128 (70-110)
[2020-02-22 16:31] LABS: POC Glucose,Bedside 135 (70-110)
[2020-02-22 16:31] LABS: POC Glucose,Bedside 220 (70-110)
[2020-02-22 16:31] LABS: POC Glucose,Bedside 147 (70-110)
--- NOTE | 2020-02-22 16:48 | PC.NURSE ---
PATIENT ALERT TO SELF, LUNGS: RHONCI HEARD THROUGHOUT, BUE PULSES EQUAL. BLE PULSES +1. RIGHT LOWER EXTREMITY MORE EDEMATOUS THAN AM ASSESSMENT. BLE REDNESS ON SHINS, SKIN WARM TO TOUCH, MD AWARE. PATIENT HAS REFUSED 2HR TURNS, REFUSED BREAKFAST AND LUNCH. PATIENT REFUSED AFTERNOON MEDS. THIS RN CRUSHED MEDS AND PUT THEM IN APPLESAUCE, PATIENT CONTINUED TO REFUSED. THIS RN NOTIFIED MD OF PATIENT BEING LETHARGIC IN AM, ABGS ORDERED AND FINDINGS REPORTED TO MD AT 1212. THIS RN NOTIFIED MD OF 3 LOOSE STOOLS, DIARRHEA PANEL ORDERED, NO RESULTS THUS FAR. MD NOTIFIED OF PATIENT TEMPERATURE SLOWLY RISING, TYLENOL ORDERED. PATIENT REQUESTED A BREATHING TREATMENT, MD NOTIFIED, VENTOLIN INHALER ORDERED. PATIENT'S URINE IN WEBB IS PALE YELLOW, CLOUDY AND PURULENT IN COLOR THRU THIS RN SHIFT. NO OTHER NEEDS OR CONCERNS AT THIS TIME.
--- NOTE | 2020-02-22 17:43 | HMH.ACPN2 ---
Internal Medicine - PN: Subj *Date: 02/22/20 *Time: 17:43 Interval history: Through the day we have been awaiting patient's PCR coronavirus test which is pending, and patient has had some increasing problems with wheezing. We have started albuterol inhaler, in addition to Solu-Medrol. Patient is also been somewhat combative and has had some diarrhea, stool PCR testing pending. Exam Vital signs and Labs for Last 24 Hours: Temp Pulse Resp BP Pulse Ox 99.0 F 60 20 134/66 96 02/22/20 15:34 02/22/20 16:00 02/22/20 15:34 02/22/20 15:34 02/22/20 16:00 Laboratory Results - last 24 hr 02/21/20 20:39: POC Glucose 220 H 02/22/20 05:50: POC Glucose 135 H 02/22/20 06:05: WBC 13.3 H, RBC 3.36 L, Hgb 9.4 L, Hct 30.5 L, MCV 90.8, MCH 28.0, MCHC 30.9 L, RDW 16.6, Plt Count 285, MPV 9.6, Neut % (Auto) 83.0 H, Lymph % (Auto) 5.8 L, [place] % (Auto) 10.6 H, Eos % (Auto) 0.4, Baso % (Auto) 0.2, Neut # (Auto) 11.0 H, Lymph # (Auto) 0.8, [place] # (Auto) 1.4 H, Eos # (Auto) 0.1, Baso # (Auto) 0.0 02/22/20 06:05: Sodium 141, Potassium 3.3 L, Chloride 91 L, Carbon Dioxide 44 H*, Anion Gap 9.3, BUN 31 H, Creatinine 1.60 H, Estimated Creat Clear 77, Estimated GFR 43 L, Est GFR ( Amer) 52 L, Glucose 127 H, Calcium 8.6, Magnesium 2.1 02/22/20 11:23: POC Glucose 147 H 02/22/20 12:13: Specimen Source Right radial, O2 % 4l, ABG pH 7.39, ABG pCO2 68.1 H, ABG pO2 69.0 L, ABG HCO3 40.7 H, ABG Total CO2 42.8 H, ABG O2 Saturation 92, ABG Base Excess 15.8 H, Robert Test Acceptable 02/22/20 16:06: POC Glucose 128 H I & O for Last 24 hours: Intake & Output 02/20/20 02/21/20 02/22/20 02/23/20 11:59 11:59 11:59 11:59 Intake Total 210 / 210 1480 / 1480 1150 / 1150 0 / 0 Output Total 750 / 750 2150 / 2150 1550 / 1550 Balance -540 / -540 -670 / -670 -400 / -400 0 / 0 Weight 285 lb 7 oz 286 lb 4 oz 283 lb 7 oz Microbiology Reports for the Last 24 Hours: Microbiology 02/21/20 15:45 Sputum - Expectorated Sputum Gram Stain - Final 02/21/20 15:45 Sputum - Expectorated Sputum Sputum Culture - Preliminary 02/19/20 17:24 Urine,Clean Catch Urine Culture - Final Morganella morganii 02/19/20 14:40 Blood Blood Culture - Preliminary NO GROWTH AFTER 48 HOURS 02/19/20 14:40 Blood Blood Culture - Preliminary NO GROWTH AFTER 48 HOURS Narrative: Patient is sleeping but arousable, somewhat disoriented. Confused about his location. Lungs have rhonchi and wheezing in all tim, however his air movement is fairly good. Heart rate bradycardic but regular. Occasional ectopic beats. Abdomen soft and nontender. Extremities have poor perfusion consistent with his known vascular disease, stump sites look good, no evidence of cellulitis, neurologic exam is nonfocal but considerably confused. Assessment and Plan (1) COVID-19 virus infection Current visit: Yes Status: Acute Category: Medical Code(s): U07.1 - COVID-19 (2) Acute and chronic respiratory failure with hypoxia Current visit: Yes Status: Resolved Category: Medical Code(s): J96.21 - Acute and chronic respiratory failure with hypoxia (3) Inlrb-xw-movzegy kidney injury Current visit: Yes Status: Resolved Category: Medical Code(s): N17.9 - Acute kidney failure, unspecified; N18.9 - Chronic kidney disease, unspecified (4) Recurrent right pleural effusion Current visit: Yes Status: Chronic Category: Medical Code(s): J90 - Pleural effusion, not elsewhere classified (5) Right lower lobe pneumonia Current visit: Yes Status: Acute Category: Medical Code(s): J18.9 - Pneumonia, unspecified organism (6) UTI (urinary tract infection) Problem details: Recurrent. 3 different pathogens isolated in the past month and a half, for pathogens isolated in the past 6 months. Pathogens include Proteus, Klebsiella, E. coli, Morganella morganii (current infection) last 3 infec
--- NOTE | 2020-02-22 17:58 | PC.NURSE ---
Pt has refused to eat all day. Was able to get him to drink some boost, but small sips at a time.
--- NOTE | 2020-02-22 18:14 | PC.NURSE ---
PATIENT REFUSED HIS DINNER BUT ATE ICE CREAM AND DRANK A DIET PEPSI. PATIENT AGAIN REFUSED TO BE TURNED. NO OTHER CONCERNS AT THIS TIME.
[2020-02-22 19:01] LABS: Covid-19 Nasal PCR Sendout UK Not Detected
[2020-02-22 22:18] LABS: POC Glucose,Bedside 174 (70-110)
[2020-02-23] VITALS (10 sets, daily range): BP systolic 115–156; BP diastolic 51–86; PULSE 57–94; RESP 16–24; TEMP 36.6–37.1; O2SAT 91–94; BMI 38.7
[2020-02-23 06:24] LABS: POC Glucose,Bedside 197 (70-110)
[2020-02-23 07:09] LABS: Basophils % 0.1 % (0.1-2.0); Eosinophils % 0.1 % (0.1-12.0); Hemoglobin 10.3 g/dL (14.1-18.0); Lymphocytes # 0.5 K/mm3 (0.7-4.5); Lymphocytes % 5.2 % (10-50); Mean Corpuscular HGB Conc 31.1 g/dL (31.8-35.4); Mean Corpuscular Hemoglobin 28.5 pg (27.0-31.2); Mean Corpuscular Volume 91.4 fl (80-94); Mean Platelet Volume 9.2 fl (7.4-10.4); Monocytes # 0.4 K/mm3 (0.1-1.0); Monocytes % 3.8 % (1.7-9.3); Neutrophils # 8.6 K/mm3 (1.8-7.8); Neutrophils % 90.9 % (37.0-80.0); Platelet Count 270 K/mm3 (142-424); Red Blood Count 3.61 M/mm3 (4.60-6.20); Red Cell Distribution Width 16.4 % (11.5-17.5); White Blood Count 9.5 K/mm3 (4.8-10.8)
[2020-02-23 07:11] LABS: MANUAL DIFFERENTIAL MANUAL DIFFERENTIAL (MANUAL DIFF)
[2020-02-23 07:14] LABS: Chloride 96 mmol/L (98-107); Potassium 4.4 mmoL/L (3.5-5.1); Sodium 145 mmol/L (136-145)
[2020-02-23 07:17] LABS: Alanine Aminotransferase 26 U/L (12-78); Albumin Level 2.7 g/dl (3.5-5.0); Albumin/Globulin Ratio 0.8 (1.1-1.8); Alkaline Phosphatase 114 U/L (38-126); Aspartate Amino Transferase 40 U/L (17-59); Bilirubin,Total 0.4 mg/dl (0.2-1.3); Blood Urea Nitrogen 32 mg/dl (9-20); Calcium 8.9 mg/dl (8.4-10.2); Creatinine Clearance Estimated 83 mL/min (50-200); Estimated Glomerular Filt Rate 46 ml/min (>60); GFR (African American) 56 ML/MIN (>60); Globulin 3.4 g/dL (1.3-3.2); Glucose 181 mg/dl (74-100); Total Protein,Serum 6.1 g/dl (6.3-8.2)
[2020-02-23 07:25] LABS: Anion Gap 10.4 mEq/L (5-15); Carbon Dioxide 43 mmol/L (22.0-30.0)
--- NOTE | 2020-02-23 07:40 | HMH.ACPN2 ---
Internal Medicine - PN: Subj *Date: 02/23/20 *Time: 18:55 Interval history: Mr. Wynne overall did well last night. Slightly improved this morning as far as mentation. Still somewhat groggy but alert and interactive on exam. Denies chest pain, shortness of breath, nausea, vomiting, confusion. Reviewed vitals, stable with no fever. Labs reviewed this morning. Kidney function continues to improve. Patient tolerating p.o. intake. Stable baseline oxygen requirement. Repeat COVID test obtained today as he will need to negatives to return back to alf Exam Vital signs and Labs for Last 24 Hours: Temp Pulse Resp BP Pulse Ox 97.9 F 60 24 115/51 L 92 L 02/23/20 03:27 02/23/20 04:00 02/23/20 03:27 02/23/20 03:27 02/23/20 03:27 Laboratory Results - last 24 hr 02/21/20 12:53: SARS-CoV-2 (PCR) Not detected 02/21/20 20:39: POC Glucose 220 H 02/22/20 05:50: POC Glucose 135 H 02/22/20 11:23: POC Glucose 147 H 02/22/20 12:13: Specimen Source Right radial, O2 % 4l, ABG pH 7.39, ABG pCO2 68.1 H, ABG pO2 69.0 L, ABG HCO3 40.7 H, ABG Total CO2 42.8 H, ABG O2 Saturation 92, ABG Base Excess 15.8 H, Robert Test Acceptable 02/22/20 12:25: Stl Aeromonas (PCR) Not detected, Stl C. cayetanensis PCR Not detected, Stool Rotavirus (PCR) Not detected, Stl Adenov F 40/41 PCR Not detected, Stool Astrovirus (PCR) Not detected, Stool Campylobacter PCR Not detected, Stl C.difficile Tox PCR Not detected, Stool Cryptosporidium PCR Not detected, Stl E.coli Shiga Tox PCR Not detected, Stool E coli O157 PCR Not detected, Stl Enterotoxigenic E PCR Not detected, Stool EPEC (PCR) Not detected, Stool EAEC (PCR) Not detected, Stl E. histolytica PCR Not detected, Stool Giardia Lamblia PCR Not detected, Stool Salmonella PCR Not detected, Stool Sapovirus (PCR) Not detected, Stl P. shigelloides PCR Not detected, Stl Shigella/EIEC PCR Not detected, St Y.enterocolitica PCR Not detected, Stool Vibrio (PCR) Not detected, Stl Vibrio cholerae PCR Not detected, Stl Norovirus GI/GII PCR Not detected 02/22/20 16:06: POC Glucose 128 H 02/22/20 21:59: POC Glucose 174 H 02/23/20 06:13: POC Glucose 197 H 02/23/20 06:40: WBC 9.5 D, RBC 3.61 L, Hgb 10.3 L, Hct 33.0 L, MCV 91.4, MCH 28.5, MCHC 31.1 L, RDW 16.4, Plt Count 270, MPV 9.2, Neut % (Auto) 90.9 H, Lymph % (Auto) 5.2 L, [place] % (Auto) 3.8, Eos % (Auto) 0.1, Baso % (Auto) 0.1, Neut # (Auto) 8.6 H, Lymph # (Auto) 0.5 L, [place] # (Auto) 0.4, Eos # (Auto) 0.0, Baso # (Auto) 0.0 02/23/20 06:40: Sodium 145, Potassium 4.4 D, Chloride 96 L, Carbon Dioxide 43 H*, Anion Gap 10.4, BUN 32 H, Creatinine 1.50 H, Estimated Creat Clear 83, Estimated GFR 46 L, Est GFR ( Amer) 56 L, Glucose 181 H, Calcium 8.9, Total Bilirubin 0.4, AST 40, ALT 26, Alkaline Phosphatase 114, Total Protein 6.1 L, Albumin 2.7 L, Globulin 3.4 H, Albumin/Globulin Ratio 0.8 L I & O for Last 24 hours: Intake & Output 02/20/20 02/21/20 02/22/20 02/23/20 23:59 23:59 23:59 23:59 Intake Total 1110 / 1330 1370 / 1730 930 / 930 Output Total 2150 / 2150 1650 / 1650 1350 / 1350 625 / 625 Balance -1040 / -820 -280 / 80 -420 / -420 -615 / -615 Weight 129.472 kg 129.841 kg 129 kg 129.727 kg Microbiology Reports for the Last 24 Hours: Microbiology 02/21/20 15:45 Sputum - Expectorated Sputum Gram Stain - Final 02/21/20 15:45 Sputum - Expectorated Sputum Sputum Culture - Preliminary 02/19/20 17:24 Urine,Clean Catch Urine Culture - Final Morganella morganii Narrative: - Constitutional On baseline oxygen requirement, breathing at baseline this morning, upright in bed in minimal distress on interview, obese - *Routine HEENT Exam Head: Present: normocephalic Eye: Present: EOMI, PERRL ENT: Present: mucous membranes moist - *Routine Neck Exam Present: supple. Absent: lymphadenopathy - *Routine Respiratory Exam Present: decreased breath sounds (In bilateral bases), interval improvement in crackles (in bases)
--- NOTE | 2020-02-23 08:20 | HMH.ACPN ---
Internal Medicine - PN: Subj *Date: 02/23/20 *Time: 08:20 Exam Vital signs and Labs for Last 24 Hours: Temp Pulse Resp BP Pulse Ox 97.9 F 60 24 115/51 L 92 L 02/23/20 03:27 02/23/20 04:00 02/23/20 03:27 02/23/20 03:27 02/23/20 03:27 Laboratory Results - last 24 hr 02/21/20 12:53: SARS-CoV-2 (PCR) Not detected 02/21/20 20:39: POC Glucose 220 H 02/22/20 05:50: POC Glucose 135 H 02/22/20 11:23: POC Glucose 147 H 02/22/20 12:13: Specimen Source Right radial, O2 % 4l, ABG pH 7.39, ABG pCO2 68.1 H, ABG pO2 69.0 L, ABG HCO3 40.7 H, ABG Total CO2 42.8 H, ABG O2 Saturation 92, ABG Base Excess 15.8 H, Robert Test Acceptable 02/22/20 12:25: Stl Aeromonas (PCR) Not detected, Stl C. cayetanensis PCR Not detected, Stool Rotavirus (PCR) Not detected, Stl Adenov F 40/41 PCR Not detected, Stool Astrovirus (PCR) Not detected, Stool Campylobacter PCR Not detected, Stl C.difficile Tox PCR Not detected, Stool Cryptosporidium PCR Not detected, Stl E.coli Shiga Tox PCR Not detected, Stool E coli O157 PCR Not detected, Stl Enterotoxigenic E PCR Not detected, Stool EPEC (PCR) Not detected, Stool EAEC (PCR) Not detected, Stl E. histolytica PCR Not detected, Stool Giardia Lamblia PCR Not detected, Stool Salmonella PCR Not detected, Stool Sapovirus (PCR) Not detected, Stl P. shigelloides PCR Not detected, Stl Shigella/EIEC PCR Not detected, St Y.enterocolitica PCR Not detected, Stool Vibrio (PCR) Not detected, Stl Vibrio cholerae PCR Not detected, Stl Norovirus GI/GII PCR Not detected 02/22/20 16:06: POC Glucose 128 H 02/22/20 21:59: POC Glucose 174 H 02/23/20 06:13: POC Glucose 197 H 02/23/20 06:40: WBC 9.5 D, RBC 3.61 L, Hgb 10.3 L, Hct 33.0 L, MCV 91.4, MCH 28.5, MCHC 31.1 L, RDW 16.4, Plt Count 270, MPV 9.2, Neut % (Auto) 90.9 H, Lymph % (Auto) 5.2 L, [place] % (Auto) 3.8, Eos % (Auto) 0.1, Baso % (Auto) 0.1, Neut # (Auto) 8.6 H, Lymph # (Auto) 0.5 L, [place] # (Auto) 0.4, Eos # (Auto) 0.0, Baso # (Auto) 0.0 02/23/20 06:40: Sodium 145, Potassium 4.4 D, Chloride 96 L, Carbon Dioxide 43 H*, Anion Gap 10.4, BUN 32 H, Creatinine 1.50 H, Estimated Creat Clear 83, Estimated GFR 46 L, Est GFR ( Amer) 56 L, Glucose 181 H, Calcium 8.9, Total Bilirubin 0.4, AST 40, ALT 26, Alkaline Phosphatase 114, Total Protein 6.1 L, Albumin 2.7 L, Globulin 3.4 H, Albumin/Globulin Ratio 0.8 L I & O for Last 24 hours: Intake & Output 02/20/20 02/21/20 02/22/20 02/23/20 23:59 23:59 23:59 23:59 Intake Total 1110 / 1330 1370 / 1730 930 / 930 Output Total 2150 / 2150 1650 / 1650 1350 / 1350 625 / 625 Balance -1040 / -820 -280 / 80 -420 / -420 -615 / -615 Weight 129.472 kg 129.841 kg 129 kg 129.727 kg Microbiology Reports for the Last 24 Hours: Microbiology 02/21/20 15:45 Sputum - Expectorated Sputum Gram Stain - Final 02/21/20 15:45 Sputum - Expectorated Sputum Sputum Culture - Preliminary 02/19/20 17:24 Urine,Clean Catch Urine Culture - Final Morganella morganii Assessment and Plan (1) COVID-19 virus infection Current visit: Yes Status: Acute Category: Medical Code(s): U07.1 - COVID-19 (2) Acute and chronic respiratory failure with hypoxia Current visit: Yes Status: Resolved Category: Medical Code(s): J96.21 - Acute and chronic respiratory failure with hypoxia (3) Qibsk-jl-ifsperu kidney injury Current visit: Yes Status: Resolved Category: Medical Code(s): N17.9 - Acute kidney failure, unspecified; N18.9 - Chronic kidney disease, unspecified (4) Recurrent right pleural effusion Current visit: Yes Status: Chronic Category: Medical Code(s): J90 - Pleural effusion, not elsewhere classified (5) Right lower lobe pneumonia Current visit: Yes Status: Acute Category: Medical Code(s): J18.9 - Pneumonia, unspecified organism (6) UTI (urinary tract infection) Problem details: Recurrent. 3 different pathogens isolated in the past month and a half, for pathogens isolated in th
--- NOTE | 2020-02-23 08:21 | PC.NURSE ---
A&O X1, TO SELF. UPON INITIAL ASSESSMENT PT BECAME VERY AGITATED, PULLING AT CATHETER AND TRYING TO CLIMB OOB. THIS RN ADMINISTERED ATIVAN PER OCT. PT THEN RESTED WELL WITH EYES CLOSED THE REMAINDER OF THE SHIFT WITH NO COMPLAINTS. TOLERATED 3 LNC WELL WITH NO SOA NOTED. TACHYPNEA NOTED WITH AGITATION UPON INITIAL ASSESSMENT. +3 PITTING EDEMA NOTED TO BLE. ATTEMPTED TO ELEVATE BLE ON PILLOWS FOR EDEMA REDUCTION BUT PT REFUSED TO KEEP BLE ON PILLOWS WHILE LYING IN BED. URINE NOTED PURULENT AND YELLOW IN COLOR. SITE C/D/I. VSS. REMAINS SAFE. BED ALARM ON AND FUNCTIONING T/O SHIFT. CALL LIGHT WITHIN REACH. WILL CONTINUE TO MONITOR.
[2020-02-23 08:30] LABS: Lymphocytes % 7 % (10-50); Neutrophils % 87 % (42-76); Total Cells Counted 100
[2020-02-23 08:31] LABS: Anisocytosis 1+; Hypochromasia 1+; Macrocytosis 1+
[2020-02-23 08:32] LABS: Platelet Estimate Normal
[2020-02-23 11:53] LABS: POC Glucose,Bedside 213 (70-110)
[2020-02-23 17:11] LABS: POC Glucose,Bedside 204 (70-110)
--- NOTE | 2020-02-23 18:13 | PC.NURSE ---
pt has sat up in chair today. has been pleasant for the most part. pt kept wanting to take o2 off, educated on why he is wearing it, and agreed to put it back on. pt has f/c and it is draining adequately. pt had a bm. vss. will cont. to monitor.
[2020-02-23 22:41] LABS: POC Glucose,Bedside 196 (70-110)
--- NOTE | 2020-02-24 01:39 | PC.NURSE ---
Per Dr. De Luna @ [id number], d/c tele monitoring.
[2020-02-24 04:00] VITALS: BP 134/66; PULSE 70; RESP 17; TEMP 36.8; O2SAT 92
[2020-02-24 04:19] VITALS: PULSE 51; PULSE 57; O2SAT 92
--- NOTE | 2020-02-24 04:20 | PC.NURSE ---
RT monitored pt during RA sat=87%, returned pt to 3L NC
[2020-02-24 05:36] VITALS: BMI 38.8
[2020-02-24 05:42] LABS: POC Glucose,Bedside 182 (70-110)
--- NOTE | 2020-02-24 06:34 | PC.NURSE ---
A&O TO NAME, BIRTHDAY, AND PLACE. PT HAS TOLERATED 3L OF OXYGEN WELL THROUGHOUT SHIFT. DIMINISHED LUNG SOUNDS NOTED. HE HAS REPORTED PERIODS OF SHORTNESS OF BREATH. PT HAD AN EPISODE WHERE HE WAS VERY AGITATED WITH STAFF, STATING HE WANTED TO GO BACK TO THE LONG-TERM. STAFF EXPLAINED HE WASN'T MEDICALLY CLEARED TO LEAVE THE HOSPITAL AND COULD SPEAK WITH THE DR MORE IN THE AM. HE WAS VERY ANXIOUS AND RECEIVED ATIVAN NEEDED PER OCT. PT ALSO RECEIVED DUONEB NEEDED PER OCT. IT SEEMED TO HELP RELAX THE PATIENT AND HELP HIS SHORTNESS OF BREATH PT WAS LYING IN BED WITH HIS EYES CLOSED ON REASSESSMENT. PT HASN'T REPORTED ANY PAIN THIS SHIFT. WEBB IN PLACE WITH CLOUDY YELLOW URINE FLOWING INTO CATHETER BAG. NO KINKS NOTED. ATIVE BOWEL SOUNDS HEARD IN ALL 4 QUADRANTS. SOFT AND NONTENDER. PT WAS TURNED Q 2 HOURS. PT IS CURRENTLY RESTING IN BED. BED IN LOWEST POSITION. BED ALARM IN PLACE TO PROMOTE SAFETY. CALL LIGHT WITHIN REACH. VSS. NO CONCERNS AT THIS TIME. WILL CONTINUE TO MONITOR.
[2020-02-24 07:30] LABS: Eosinophils % 0.1 % (0.1-12.0); Hematocrit 33.1 % (42.0-52.0); Hemoglobin 10.2 g/dL (14.1-18.0); Lymphocytes # 0.5 K/mm3 (0.7-4.5); Lymphocytes % 4.7 % (10-50); Mean Corpuscular Hemoglobin 27.9 pg (27.0-31.2); Mean Platelet Volume 8.9 fl (7.4-10.4); Monocytes # 0.6 K/mm3 (0.1-1.0); Monocytes % 5.3 % (1.7-9.3); Neutrophils # 9.6 K/mm3 (1.8-7.8); Neutrophils % 89.9 % (37.0-80.0); Platelet Count 315 K/mm3 (142-424); Red Blood Count 3.68 M/mm3 (4.60-6.20); Red Cell Distribution Width 16.2 % (11.5-17.5); White Blood Count 10.6 K/mm3 (4.8-10.8)
[2020-02-24 07:35] LABS: MANUAL DIFFERENTIAL MANUAL DIFFERENTIAL (MANUAL DIFF)
[2020-02-24 07:40] LABS: Chloride 96 mmol/L (98-107)
[2020-02-24 07:41] LABS: Potassium 4.6 mmoL/L (3.5-5.1); Sodium 145 mmol/L (136-145)
[2020-02-24 07:43] LABS: Blood Urea Nitrogen 39 mg/dl (9-20)
[2020-02-24 07:44] LABS: Alanine Aminotransferase 40 U/L (12-78); Albumin Level 2.9 g/dl (3.5-5.0); Albumin/Globulin Ratio 0.9 (1.1-1.8); Alkaline Phosphatase 115 U/L (38-126); Aspartate Amino Transferase 54 U/L (17-59); Bilirubin,Total 0.4 mg/dl (0.2-1.3); Calcium 8.8 mg/dl (8.4-10.2); Creatinine Clearance Estimated 83 mL/min (50-200); Estimated Glomerular Filt Rate 46 ml/min (>60); GFR (African American) 56 ML/MIN (>60); Globulin 3.2 g/dL (1.3-3.2); Glucose 164 mg/dl (74-100); Total Protein,Serum 6.1 g/dl (6.3-8.2)
[2020-02-24 07:45] LABS: Magnesium 2.6 mg/dl (1.6-2.3)
[2020-02-24 07:53] LABS: Anion Gap 9.6 mEq/L (5-15); Carbon Dioxide 44 mmol/L (22.0-30.0); Lymphocytes % 7 % (10-50); Monocytes % 1 % (2-9); Neutrophils % 90 % (42-76); Platelet Estimate Normal; RBC Morphology Normal; Total Cells Counted 100
[2020-02-24 07:54] LABS: Anisocytosis 1+; Hypochromasia 2+
[2020-02-24 08:00] VITALS: BP 143/66; PULSE 58; RESP 20; TEMP 36.6; O2SAT 95
--- NOTE | 2020-02-24 08:58 | HMH.ACPN2 ---
Internal Medicine - PN: Subj *Date: 02/24/20 *Time: 08:58 Interval history: Patient feels much better than yesterday, bright, alert, oriented x3 Exam Vital signs and Labs for Last 24 Hours: Temp Pulse Resp BP Pulse Ox 97.8 F 58 L 20 143/66 H 95 02/24/20 08:00 02/24/20 08:00 02/24/20 08:00 02/24/20 08:00 02/24/20 08:00 Laboratory Results - last 24 hr 02/23/20 11:24: POC Glucose 213 H 02/23/20 16:39: POC Glucose 204 H 02/23/20 22:17: POC Glucose 196 H 02/24/20 05:35: POC Glucose 182 H 02/24/20 07:18: WBC 10.6, RBC 3.68 L, Hgb 10.2 L, Hct 33.1 L, MCV 90.0, MCH 27.9, MCHC 31.0 L, RDW 16.2, Plt Count 315, MPV 8.9, Neut % (Auto) 89.9 H, Lymph % (Auto) 4.7 L, [place] % (Auto) 5.3, Eos % (Auto) 0.1, Baso % (Auto) 0.0 L, Neut # (Auto) 9.6 H, Lymph # (Auto) 0.5 L, [place] # (Auto) 0.6, Eos # (Auto) 0.0, Baso # (Auto) 0.0, Total Counted 100, Neutrophils % (Manual) 90 H, Band Neutrophils % 2.0, Lymphocytes % (Manual) 7 L, Monocytes % (Manual) 1 L, Platelet Estimate Normal, RBC Morphology Normal, Hypochromasia 2+, Anisocytosis 1+ 02/24/20 07:18: Sodium 145, Potassium 4.6, Chloride 96 L, Carbon Dioxide 44 H*, Anion Gap 9.6, BUN 39 H, Creatinine 1.50 H, Estimated Creat Clear 83, Estimated GFR 46 L, Est GFR ( Amer) 56 L, Glucose 164 H, Calcium 8.8, Magnesium 2.6 H D, Total Bilirubin 0.4, AST 54 D, ALT 40 D, Alkaline Phosphatase 115, Total Protein 6.1 L, Albumin 2.9 L, Globulin 3.2, Albumin/Globulin Ratio 0.9 L I & O for Last 24 hours: Intake & Output 02/21/20 02/22/20 02/23/20 02/24/20 11:59 11:59 11:59 11:59 Intake Total 1480 / 1480 1150 / 1150 820 / 820 720 / 720 Output Total 2150 / 2150 1550 / 1550 1325 / 1325 1700 / 1700 Balance -670 / -670 -400 / -400 -505 / -505 -980 / -980 Weight 286 lb 4 oz 283 lb 7 oz 286 lb 287 lb 0.67 oz Microbiology Reports for the Last 24 Hours: Microbiology 02/21/20 15:45 Sputum - Expectorated Sputum Gram Stain - Final 02/21/20 15:45 Sputum - Expectorated Sputum Sputum Culture - Final Yeast Narrative: Alert, pleasant. Talkative. Oropharynx clear. No cranial nerve deficits. Abdomen obese but soft. Saucedo catheter draining clear yellow urine. Lungs have much better air entry with much less wheezing. Heart rate regular. Assessment and Plan (1) COVID-19 virus infection Current visit: Yes Status: Acute Category: Medical Code(s): U07.1 - COVID-19 (2) Acute and chronic respiratory failure with hypoxia Current visit: Yes Status: Resolved Category: Medical Code(s): J96.21 - Acute and chronic respiratory failure with hypoxia (3) Wrfff-li-kwggmyc kidney injury Current visit: Yes Status: Resolved Category: Medical Code(s): N17.9 - Acute kidney failure, unspecified; N18.9 - Chronic kidney disease, unspecified (4) Recurrent right pleural effusion Current visit: Yes Status: Chronic Category: Medical Code(s): J90 - Pleural effusion, not elsewhere classified (5) Right lower lobe pneumonia Current visit: Yes Status: Acute Category: Medical Code(s): J18.9 - Pneumonia, unspecified organism (6) UTI (urinary tract infection) Problem details: Recurrent. 3 different pathogens isolated in the past month and a half, for pathogens isolated in the past 6 months. Pathogens include Proteus, Klebsiella, E. coli, Morganella morganii (current infection) last 3 infections with significant resistance. No oral agents available. We will plan to treat with Invanz once daily for a total course of 10 days. Current visit: Yes Status: Acute Category: Medical Code(s): N39.0 - Urinary tract infection, site not specified (7) Acute on chronic congestive heart failure Problem details: Improving. Improved respiratory status and edema with diuresis. Would strongly encourage continuing fluid management as patient's cardiomyopathy and CHF are very tenuous at best. Quite sensitive to fluid overload per my assessment
[2020-02-24 11:27] LABS: POC Glucose,Bedside 201 (70-110)
[2020-02-24 12:00] VITALS: BP 126/68; PULSE 63; RESP 22; TEMP 36.6; O2SAT 90
[2020-02-24 13:17] LABS: Covid-19 Nasal PCR Sendout Lex Not Detected
--- NOTE | 2020-02-24 13:41 | HMH.DCSUM ---
General - General Admission date:: 02/19/20 Discharge date: 02/24/20 HPI HPI: 69-year-old gentleman with history of congestive heart failure, chronic oxygen use, partial amputation of left foot, diabetes, and chronic kidney disease who presented to the ER with worsening shortness of breath. He is a long-term resident at [facility] where he has been having difficulty for the past several days with worsening shortness of breath since stopping antibiotics and be getting treatment for UTI per his daughter's report. He has been afebrile and more tired but still alert. No nausea, vomiting. Patient denies any chest pain. On presentation to the ER he was noted to have mild elevation white count, heart rate of 90, hypercarbia, increased oxygen requirement from baseline, and creatinine of 2.3 (with unclear baseline). Urine concerning for UTI. Of note he was being treated at the residential with Invanz for UTI over the past 2 to 3 days. Patient is pleasant but a poor historian. He is oriented to person but otherwise limited in his orientation to his surroundings. Daughter states he is more or less at baseline with increased work of breathing. States his legs are significantly more swollen than normal but he deals with chronic edema. Hospital Course Hospital Course: Patient was admitted, placed on Invanz for urinary tract infection. Saucedo catheter was placed because of significant urinary retention, bladder outlet obstruction and risk of infection because of the above. He tolerated this well. COVID antibody testing was positive, but because of the high likelihood of false positive testing with his newly developed test, he was tested twice with nasal swab PCR testing, and both of these are negative. As a result he does not have clinically relevant COVID-19 infection. He improved with steroids for his lung wheezing, antibiotics and was back to his baseline this morning. He will be transferred back to his residential, he will receive 1 more week of Invanz 1 g intravenously daily. Other medications will remain the same. He will need to continue his indwelling Saucedo catheter because of the above issues to reduce infection risk and because of severe bladder retention, bladder outlet obstruction and recurrent infections. Objective Vital signs: Temp Pulse Resp BP Pulse Ox 97.8 F 63 22 126/68 90 L 02/24/20 12:00 02/24/20 12:00 02/24/20 12:02/24/20 12:00 02/24/20 12:00 Narrative: Narrative: Alert, pleasant. Talkative. Oropharynx clear. No cranial nerve deficits. Abdomen obese but soft. Saucedo catheter draining clear yellow urine. Lungs have much better air entry with much less wheezing. Heart rate regular. Of note this afternoon's exam was slightly different, patient somewhat sedated after he received Ativan at the end of the morning because of daughter's request because he was anxious. Results Labs on day of discharge: Labs from last 24 hours 02/24/20 02/24/20 02/24/20 11:16 07:18 07:18 WBC 10.6 RBC 3.68 L Hgb 10.2 L Hct 33.1 L MCV 90.0 MCH 27.9 MCHC 31.0 L RDW 16.2 Plt Count 315 MPV 8.9 Neut % (Auto) 89.9 H Lymph % (Auto) 4.7 L [place] % (Auto) 5.3 Eos % (Auto) 0.1 Baso % (Auto) 0.0 L Neut # (Auto) 9.6 H Lymph # (Auto) 0.5 L [place] # (Auto) 0.6 Eos # (Auto) 0.0 Baso # (Auto) 0.0 Total Counted 100 Neutrophils % (Manual) 90 H Band Neutrophils % 2.0 Lymphocytes % (Manual) 7 L Monocytes % (Manual) 1 L Platelet Estimate Normal RBC Morphology Normal Hypochromasia 2+ Anisocytosis 1+ Sodium 145 Potassium 4.6 Chloride 96 L Carbon Dioxide 44 H* Anion Gap 9.6 BUN 39 H Creatinine 1.50 H Estimated Creat Clear 83 Estimated GFR 46 L Est GFR ( Amer) 56 L Glucose 164 H POC Glucose 201 H Calcium 8.8 Magnesium 2.6
--- NOTE | 2020-02-24 15:09 | PC.NURSE ---
Report called to SAVANNAH Marroquin at [facility] Made [facility] aware of transfer at this time.
--- NOTE | 2020-02-24 15:34 | PC.NURSE ---
Per MD orders new 16 Fr soto placed prior to discharge using sterile technique. New #20 IV placed to RAC per MD orders as well. #20 in LAC removed w/ tip intact, no s/s of infection.
== END 2020-02-24 15:32 | DRG 189 ==
LOC: ER 14:54 → 2ND 17:26 → ICU 02-21 13:51 → 2ND 02-22 19:27
PROVIDERS: Admitting Provider Internal Medicine Adolescent Medicine; Emergency Provider Emergency Medicine; PCP Internal Medicine Adolescent Medicine; Visit Provider Internal Medicine Adolescent Medicine
DX: J96.21 Acute and chronic respiratory failure with hypoxia (principal); J18.9 Pneumonia, unspecified organism; N17.9 Acute kidney failure, unspecified; N39.0 Urinary tract infection, site not specified; I42.9 Cardiomyopathy, unspecified; I50.9 Heart failure, unspecified; J96.22 Acute and chronic respiratory failure with hypercapnia; I48.91 Unspecified atrial fibrillation; Z86.19 Personal history of other infectious and parasitic diseases; Z99.81 Dependence on supplemental oxygen; J44.9 Chronic obstructive pulmonary disease, unspecified; N18.9 Chronic kidney disease, unspecified; Z79.01 Long term (current) use of anticoagulants; Z79.4 Long term (current) use of insulin; E11.9 Type 2 diabetes mellitus without complications
CPT/HCPCS: 94660; 36415; 71045; 80048; 80053; 81001; 82803; 82962; 83605; 83735; 83880; 84484; 85007; 85025; 85610; 85730; 86328; 87040; 87070; 87086; 87088; 87186; 87205; 87275; 87276; 87507; 93005; 94640; 94761; 96365; 99285; J1335; J3370; U0003; U0004

== ENCOUNTER → 2020-03-04 11:44 | Outpatient (CLI) | payer MEDICARE, MEDICAID, SELFPAY ==
[2020-03-04 11:46] LABS: Microscopic, Urine URINE MICROSCOPIC (MICROSCOPIC)
[2020-03-04 12:00] LABS: Bilirubin,Urine Negative (Negative); Blood, Urine 3+ (Negative); Color,Urine YELLOW (Yellow); Glucose,Urine (UA) Negative (Negative); Ketones,Urine Negative (Negative); Leukocyte Esterase,Urine 3+ (Negative); Nitrate,Urine Negative (Negative); Protein,Urine 2+ (Negative); Urobilinogen,Urine 0.2 EU/dl (0.2)
[2020-03-04 12:03] LABS: Appearance,Urine Cloudy (Clear)
[2020-03-04 12:11] LABS: RBC,Urine 20-50 #/hpf (0-3); WBC,Urine 20-50 #/hpf (0-3)
[2020-03-04 12:12] LABS: Bacteria,Urine 1+ /lpf
== END ==
PROVIDERS: Visit Provider Internal Medicine Adolescent Medicine
DX: N39.0 Urinary tract infection, site not specified (principal)
CPT/HCPCS: 81001; 87086; 87088